=== PATIENT | male | born 1965 | race Caucasian/White ===

== ENCOUNTER 2016-09-26 19:40 | Emergency (ER) | payer OTHER ==
[2016-09-26] MEDS ORDERED: ADDERALL 10 MG10 M2 PO (20:25)
[2016-09-26] MEDS ORDERED: NORCO 5-325 TA1 EACH PO (20:43)
== END 2016-09-26 20:53 ==
LOC: EDMED 19:40
DX: S90.31XA Contusion of right foot, initial encounter (principal); F90.9 Attention-deficit hyperactivity disorder, unspecified type; Z79.899 Other long term (current) drug therapy; W20.8XXA Other cause of strike by thrown, projected or falling object, initial encounter; Y92.69 Other specified industrial and construction area as the place of occurrence of the external cause; Y99.0 Civilian activity done for income or pay